=== PATIENT | male | born 1995 | race Two or more races ===

== ENCOUNTER 2017-01-04 15:36 | Emergency (ER) | payer OTHER ==
--- NOTE | 2017-01-04 15:57 | EDPHY ---
H & P Time Seen by Provider: 01/04/17 15:51 HPI/ROS: CHIEF COMPLAINT: Left foot pain HISTORY OF PRESENT ILLNESS: This is a 21-year-old male ambulatory with an antalgic gait presenting to the emergency department. Patient states 3 days ago he was rock climbing, dorsiflexion of left great toe felt a pop since then has been having pain with weight-bearing some bruising noted. Using ice several times a day, intermittent ibuprofen for pain. Denies any other injuries REVIEW OF SYSTEMS: Constitutional: No fever chills Respiratory: No shortness of breath Cardiac: No chest pain Musculoskeletal: No back pain, left great toe pain Skin: No rash Neurological: No headache or dizziness Smoking Status: Never smoked Physical Exam: General Appearance: Alert and no distress. Eyes: Pupils equal and round no injection. Respiratory: Chest is nontender, lungs are clear to auscultation. Musculoskeletal: No cervical vertebral spine tenderness. Neck is supple and nontender. Extremities: Left great toe tenderness @ metatarsal joint with ecchymosis minor swelling noted no erythema. full range of motion Skin: No rashes or lesions. Constitutional: Initial Vital Signs Temperature (C) 36.8 C 01/04/17 15:38 Heart Rate 86 01/04/17 15:38 Respiratory Rate 18 01/04/17 15:38 Blood Pressure 119/82 H 01/04/17 15:38 O2 Sat (%) 92 01/04/17 15:38 O2 Delivery Mode Room Air Allergies/Adverse Reactions: No Known Allergies Allergy (Verified 10/21/13 20:58) Home Medications: Medication Instructions Recorded NK [No Known Home Meds] 06/20/16 Medical Decision Making - Diagnostics Imaging: Imaging Impressions Foot X-Ray 01/04/17 15:44 Impression: Possible bursitis medial to the first metatarsal head. ED Course/Re-evaluation: Discussed plan of care: X-ray left great toe 1630: Discussed x-ray result, no acute fracture 1635: Discharge home---> stable, discussed discharge instructions with patient Differential Diagnosis: Differential diagnosis considered but not limited to metatarsal fracture, metatarsal dislocation, and gout Departure - Departure Disposition: Home, Routine, Self-Care Clinical Impression: Bursitis Qualifiers: Bursitis location: foot Laterality: left Qualified Code(s): M71.572 - Other bursitis, not elsewhere classified, left ankle and foot Condition: Good Instructions: Swollen Joint (ED) Additional Instructions: 1. Ice 15 minutes several times a day 2. Elevate foot when possible, decrease any strenuous activity that you would have to dorsiflexed your toe 3. Ibuprofen 600 mg-800 mg every 6-8 hours as needed for pain Referrals: NONE *PRIMARY CARE P,. [Primary Care Provider] - As per Instructions [facility],. [Clinic] - As per Instructions
[2017-01-04 16:49] VITALS: BP 137/68; PULSE 81; RESP 16; TEMP 99; O2SAT 94
== END 2017-01-04 16:49 | disposition home or self-care (01) ==
DX: M71.572 Other bursitis, not elsewhere classified, left ankle and foot (principal)

== ENCOUNTER 2017-05-01 02:16 | Emergency (ER) | payer OTHER ==
[2017-05-01 02:23] VITALS: BP 132/69; PULSE 93; RESP 18; TEMP 98.6; O2SAT 96
--- NOTE | 2017-05-01 02:25 | EDPHY ---
H & P Stated Complaint: LEFT JAW INTO EAR PAIN X3 DAYS, ALSO HAS FREQUENCY OF URINATION HPI/ROS: HPI CHIEF COMPLAINT: Urinary frequency, left jaw pain worse when biting down HISTORY OF PRESENT ILLNESS: This patient very pleasant 21-year-old male no significant medical history does not take any daily medications he presents to the emergency room with multiple complaints. Patient states over the last 3 days he has noticed some jaw pain left-sided right at the TMJ joint. It is worse when he goes to bite or chew. He has no pain with opening it or dental pain. No chest pain or shortness of breath no fever. No trouble swallowing. No drooling. Has significant pain when he goes to chew 1 something. Pain is located left TMJ. Additionally tells me he has noticed over the last 24 hours some urinary frequency without dysuria or drip from his penis. Past Medical History: Denies medical history Past Surgical History: Denies surgical history Social History: Denies daily use of drugs alcohol tobacco Family History: Noncontributory ROS REVIEW OF SYSTEMS: A comprehensive 10 point review of systems is otherwise negative aside from elements mentioned in the history of present illness. Exam Constitutional triage nursing summary reviewed, vital signs reviewed, awake/ alert. Eyes normal conjunctivae and sclera, EOMI, PERRLA. HENT face: Very mild tender palpation over the left TMJ joint, no clicking, no malocclusion with bite, dentition normal, normal inspection, atraumatic, moist mucus membranes, no epistaxis, neck supple/ no meningismus, no raccoon eyes. Respiratory clear to auscultation bilaterally, normal breath sounds, no respiratory distress, no wheezing. Cardiovascular rate normal, regular rhythm, no murmur, no edema, distal pulses normal. Gastrointestinal soft, non-tender, no rebound, no guarding, normal bowel sounds, no distension, no pulsatile mass. Genitourinary no CVA tenderness. Musculoskeletal no midline vertebral tenderness, full range of motion, no calf swelling, no tenderness of extremities, no meningismus, good pulses, neurovascularly intact. Skin pink, warm, & dry, no rash, skin atraumatic. Neurologic awake, alert and oriented x 3, AAOx3, moves all 4 extremities equally, motor intact, sensory intact, CN II-XII intact, normal cerebellar, normal vision, normal speech. Psychiatric normal mood/affect. Heme/Lymph/Immune no lymphadenopathy. Differential Diagnosis: Includes but is not limited to in a particular order TMJ, TMJ arthritis, urinary tract infection, STI. Medical Decision Making: Plan for this patient anti-inflammatory pain medicine for his TMJ, check urinalysis clean catch and urinalysis dirty catch for UTI and STI. Patient is adamant that he has not had intercourse in quite a long time and denies any drip or drainage or discharge from his penis. Will also referred to ENT for TMJ follow-up. Re-evaluation: Urinalysis unremarkable. [place] and ibuprofen provided. Recommend close follow- up with ENT. Return emergency room if there is any worsening symptoms questions or concerns. Soft diet. Source: Patient - Personal History Current Tetanus/Diphtheria Vaccine: Yes - Medical/Surgical History Hx Asthma: No Hx Chronic Respiratory Disease: No Hx Diabetes: No Hx Cardiac Disease: No Hx Renal Disease: No Hx Cirrhosis: No Hx Alcoholism: No Hx HIV/AIDS: No Hx Splenectomy or Spleen Trauma: No Other PMH: PMH: denies. PSH: inguinal Hernia repair - Social History Smoking Status: Never smoked Constitutional: Initial Vital Signs Temperature (C) 37.0 C 05/01/17 02:21 Heart Rate 93 05/01/17 02:21 Respiratory Rate 18 05/01/17 02:21 Blood Pressure 132/69 H 05/01/17 02:21 O2 Sat (%) 96 05/01/17 02:21 O2 Delivery Mode Room Air Allergies/Adverse Reactions: No Known Allergies Allergy (Verified 05/01/17 02:21) Home Medications: Medication Instructions Recorded Hydrocodone/APAP 5/325 [[place] 1 - 2 tab PO Q4H PRN #10 tab 05/01/17 5/325] Ibuprofen [Motrin (*)] 800 mg PO Q6-8PRN #14 tab 05/01/17 Medical Decision Making - Data Points Laboratory Results: 05/01/17 05/01/17 02:25 02:20 Urine Color PALE YELLOW Urine Appearance CLEAR Urine pH 5.0 (5.0-7.5) Ur Specific [place] 1.010 (1.002-1.030) Urine Protein NEGATIVE (NEGATIVE) Urine Ketones NEGATIVE (NEGATIVE) Urine Blood NEGATIVE (NEGATIVE) Urine Nitrate NEGATIVE (NEGATIVE) Urine Bilirubin NEGATIVE (NEGATIVE) Urine Urobilinogen NEGATIVE EU EU (0.2-1.0) Ur Leukocyte Esterase NEGATIVE (NEGATIVE) Urine Glucose NEGATIVE (NEGATIVE) N.gonorrhoeae RNA (TMA) Pending Departure - Departure Disposition: Home, Routine, Self-Care Clinical Impression: TMJ arthritis Condition: Good Instructions: Temporomandibular Disorder (ED) Additional Instructions: 1. Soft diet. 2. Anti-inflammatory pain medicine for the next week. 3. If you have severe pain take the narcotic pain medicine. Be careful this can make you sleepy. 4. Follow up with ENT. Referrals: Caesar Muhammad MD [Primary Care Provider] - As per Instructions Edvin Grossman MD [Medical Doctor] - As per Instructions Prescriptions: Hydrocodone/APAP 5/325 [[place] 5/325] 1 - 2 tab PO Q4H PRN #10 tab PRN Reason: Pain, Moderate Ibuprofen [Motrin (*)] 800 mg PO Q6-8PRN #14 tab
[2017-05-01 02:55] LABS: COLOR PALE YELLOW; LEUKOCYTE ESTERASE,URINE NEGATIVE (NEGATIVE); NITRITE,URINE NEGATIVE (NEGATIVE)
== END 2017-05-01 03:16 | disposition home or self-care (01) ==
DX: M19.90 Unspecified osteoarthritis, unspecified site (principal)